=== PATIENT | male | born 2000 | race Caucasian/White ===

== ENCOUNTER → 2021-01-12 15:22 | Outpatient (CLI) | payer OTHER, SELFPAY ==
[2021-01-12 15:35] LABS: Add Manual Diff / Slide Review NO; Basophils Absolute Auto 100 /uL (0-100); Eosinophils Absolute Auto 0 /uL (0-450); Eosinophils Percent Auto 0.5 % (2-4); Hematocrit 45.9 % (41-53); Hemoglobin 15.2 g/dL (13.5-17.5); Lymphocytes Absolute Auto 2000 /uL (1100-4500); Lymphocytes Percent Auto 28.4 % (25-40); Mean Corpuscular Hemoglobin 29.4 PG (26-34); Mean Corpuscular Volume 89.1 fL (80-100); Monocytes Absolute Auto 700 /uL (0-900); Neutrophils Absolute Auto 4300 /uL (1500-7000); Neutrophils Percent Auto 60.1 % (50-75); Platelet Count 255 X10^3/uL (150-400); Red Blood Cell Count 5.15 X10^6/uL (4.5-5.9); Red Cell Distribution Width 13.5 % (11.6-14.8); White Blood Cell Count 7.1 X10^3/uL (4.5-11.0)
[2021-01-12 15:56] LABS: Alanine Aminotransferase 21 IU/L (<50); Albumin 4.8 g/dL (3.5-5.0); Albumin Globulin Ratio 1.7 (1.0-2.8); Alkaline Phosphatase 61 U/L (38-126); Aspartate Aminotransferase 26 IU/L (17-59); BUN Creatinine Ratio 13.1 (6-22); Bilirubin Total 1.2 mg/dL (0.2-1.3); Blood Urea Nitrogen 13 mg/dL (9-20); Calcium 9.4 mg/dL (8.4-10.2); Carbon Dioxide 31 mmol/L (22-32); Chloride 103 mmol/L (98-107); Cholesterol 182 mg/dL (140-199); Estimated Glomerular Filt Rate > 60.0 mL/min (>60); Globulin 2.9 g/dL (1.7-4.1); Glucose 90 mg/dL (70-100); HDL Cholesterol 53 mg/dL (40-60); HEMOLYSIS < 15 (0-50); LDL Cholesterol Calculated 97 mg/dL (<100); Potassium 3.9 mmol/L (3.4-5.1); Sodium 141 mmol/L (137-145); Total Protein 7.7 g/dL (6.3-8.2); Triglycerides 159 mg/dL (35-150)
== END ==
PROVIDERS: Family Provider Pediatrics; PCP Pediatrics; Referring Provider Nurse Practitioner; Visit Provider Nurse Practitioner
DX: R10.9 Unspecified abdominal pain (principal)
CPT/HCPCS: 36415; 80053; 80061; 85025

== ENCOUNTER → 2021-01-16 11:02 | Outpatient (CLI) | payer OTHER, SELFPAY ==
--- NOTE | 2021-01-16 11:04 | DI.US.S_ITS ---
PROCEDURE: US SCROTUM INDICATIONS: TESTICULAR MASS TECHNIQUE: Real-time scanning was performed of the scrotum and testicles, with image documentation. Color and pulse Doppler interrogation was performed of both testicles. COMPARISON: None. FINDINGS: Right: Testicle measures 4.4 x 2.9 x 1.7 cm and appears homogenous in echotexture. No discrete testicular mass identified. Epididymis is normal in overall size and morphology. No hydrocele or varicoceles. Overlying scrotal skin is normal in thickness. Left: Testicle measures 4.2 x 2.6 x 1.8 cm and appears homogeneous in echotexture. No discrete testicular mass identified. Epididymis is normal in overall size and morphology. No hydrocele or varicoceles. Overlying scrotal skin is normal in thickness. Doppler: Color and pulse Doppler demonstrate normal and symmetric arterial flow in both testicles. IMPRESSION: 1. No discrete scrotal or testicular mass identified. Dictated by: Ganesh Gauthier M.D. on 01/16/2021 at 12:02 Approved by: Ganesh Gauthier M.D. on 01/16/2021 at 12:44
== END ==
PROVIDERS: Family Provider Pediatrics; PCP Pediatrics; Referring Provider Nurse Practitioner; Visit Provider Nurse Practitioner
DX: N50.89 Other specified disorders of the male genital organs (principal)
CPT/HCPCS: 76870

== ENCOUNTER 2022-03-12 08:42 | Emergency (ER) | payer OTHER, SELFPAY ==
[2022-03-12] VITALS (7 sets, daily range): BP systolic 118–129; BP diastolic 71–83; PULSE 89–113; RESP 16–18; TEMP 36.4; O2SAT 97–99; BMI 21.2
--- NOTE | 2022-03-12 09:16 | DI.US.S_ITS ---
Caution: Report not yet finalized and possibly incomplete! PROCEDURE: US SCROTUM INDICATIONS: RIGHT TESTICULAR PAIN AND SWELLING TECHNIQUE: Real-time scanning was performed of the scrotum and testicles, with image documentation. Color and pulse Doppler interrogation was performed of both testicles. COMPARISON: [facility], US, US SCROTUM, 01/16/2021, 11:17. FINDINGS: Right: Testicle is normal in size at 3.7 x 2.3 x 2.5 cm, and homogenous in echotexture. Epididymis is enlarged, measuring 17 mm. There is increased vascularity within the epididymis. Septated hydrocele with debris is present. Overlying scrotal wall is thickened. Left: Testicle is normal in size at 4.3 x 2.4 x 1.8 cm, and homogeneous in echotexture. Epididymis is normal in overall size and morphology. No hydrocele or varicoceles. Overlying scrotal skin is normal in thickness. Doppler: Color and pulse Doppler demonstrate normal and symmetric arterial flow in both testicles. IMPRESSION: 1. Findings suggestive of right-sided epididymitis. 2. Septated debris-filled right hydrocele which may indicate purulent or hemorrhagic contents. Dictated by: Kalyan Chawla M.D. on 03/12/2022 at 10:36 Transcribed by: NYDIA on 03/12/2022 at 10:39
--- NOTE | 2022-03-12 09:16 | ED.GENADULT ---
HPI - General Adult General Chief complaint: Urogenital-Male Stated complaint: Swollen in [place] area, abd pain,sent by [facility] Time Seen by Provider: 03/12/22 09:03 Source: patient and family Mode of arrival: Ambulatory History of Present Illness HPI narrative: Patient is a 21-year-old male who is here for evaluation of right testicular pain and swelling and pain in his right abdomen and lower back. He states that his symptoms initially started a couple weeks ago. [place] happened. He went to a urgent care. Was presumptively diagnosed with epididymitis. He states that they did check his urine he did not have a urinary tract infection but there was no ultrasound obtained. He was sent home on Bactrim. He has completed the course of the Bactrim. His symptoms greatly improved however a couple days ago they seem to have returned and have worsened since then. He is not having any urinary symptoms. Has had some subjective fevers. No trauma. He is not sexually active. No history of sexually transmitted diseases. No concern about that currently. He is circumcised. He did have a right inguinal hernia repair as a child. He is also had his appendix removed. He has been taking Tylenol at home with only minimal improvement. Related Data Previous Rx's Medication Instructions Recorded doxycycline hyclate 100 mg capsule 100 mg PO BID 10 days #20 caps 03/12/22 Allergies Allergy/AdvReac Type Severity Reaction Status Date / Time No Known Drug Allergies Allergy Verified 03/12/22 08:31 Review of Systems Constitutional Constitutional: Reports system reviewed and no additional complaints, except as documented Gastrointestinal Gastrointestinal: Reports system reviewed and no additional complaints, except as documented Genitourinary Genitourinary: Reports system reviewed and no additional complaints, except as documented Integumentary/Breasts Skin/Breast: Reports system reviewed and no additional complaints, except as documented Hematologic/Lymphatic On Anticoagulants: No Patient History Medical History Acute appendicitis Pericarditis Pleurisy Social History Smoking Status: Never smoker Smoking Status: Never smoker Substance Use Type: does not use Exam Initial Vital Signs Initial Vital Signs: Vital Signs Blood Pressure 119/77 03/12/22 08:54 HENMT Head: normal to inspection and normocephalic Resp Effort & Inspection: normal respiratory effort Cardio Rate: regular rate GI Inspection: normal to inspection and non-distended Palpation: No firm, No guarding and tender (Right lower quadrant) Other: Circumcised, penis is unremarkable. No inguinal hernias felt bilaterally. Left testicle is unremarkable. Right testicle and epididymis is swollen. Somewhat discolored. Is tender to the touch. Skin General: no rashes or lesions noted Neuro General: patient alert, patient awake and moves all extremities Extrem General: normal to inspection and capillary refill normal Course Orders Ordered: ED Orders 03/12/22 09:16 US scrotum Stat 03/12/22 10:02 Basic Metabolic Panel Stat Complete Blood Count AUTO DIFF Stat Discontinued Medications Ceftriaxone Sodium (Ceftriaxone 1,000 Mg Vial) 500 mg IM NOW ONE Stop: 03/12/22 11:07 Lidocaine HCl (Lidocaine 1% (Pf) 5 Ml) 2.1 ml INJ NOW ONE Stop: 03/12/22 11:07 Vital Signs Vital signs: Vital Signs - 8 hr 03/12/22 08:54 03/12/22 08:55 03/12/22 08:59 Temperature 97.6 F 97.6 F Pulse Rate 113 H 101 H Respiratory Rate 16 18 Blood Pressure 119/77 119/77 Pulse Oximetry 99 99 Oxygen Delivery Method Room Air 03/12/22 09:00 03/12/22 09:00 03/12/22 09:30 Temperature Pulse Rate 100 H 89 Respiratory Rate Blood Pressure 121/83 Pulse Oximetry 98 97 Oxygen Delivery Method 03/12/22 09:33 03/12/22 09:33 Temperature Pulse Rate 96 H Respiratory Rate Blood Pressure 129/71 Pulse Oximetry 99 Oxygen Delivery Method Room Air Medical Decision Making Lab Data Lab results reviewed: Yes I reviewed the patient's lab results. Result diagrams: 03/12/22 10:02 03/12/22 10:02 Labs: Lab Results 03/12/22 03/12/22 Range/Units 10:02 10:02 WBC 7.1 (4.5-11.0) X10^3/uL RBC 4.82 (4.5-5.9) X10^6/uL Hgb 14.4 (13.5-17.5) g/dL Hct 41.8 (41-53) % MCV 86.8 (80-100) fL MCH 30.0 (26-34) PG MCHC 34.5 (30-36) % RDW 13.7 (11.6-14.8) % Plt Count 299 (150-400) X10^3/uL Neut % (Auto) 59.9 (50-75) % Lymph % (Auto) 25.0 (25-40) % [place] % (Auto) 12.3 (3-14) % Eos % (Auto) 1.3 L (2-4) % Baso % (Auto) 1.5 (0-2) % Neut # (Auto) 4300 (2295-0269) /uL Lymph # (Auto) 1800 (8512-2774) /uL [place] # (Auto) 900 (0-900) /uL Eos # (Auto) 100 (0-450) /uL Baso # (Auto) 100 (0-100) /uL Sodium 138 (137-145) mmol/L Potassium 4.0 (3.4-5.1) mmol/L Chloride 99 (98-107) mmol/L Carbon Dioxide 27 (22-32) mmol/L BUN 11 (9-20) mg/dL Creatinine 1.14 (0.66-1.25) mg/dL Estimated GFR > 60 (>60) mL/min BUN/Creatinine Ratio 9.6 (6-22) Glucose 86 (70-100) mg/dL Calcium 9.5 (8.4-10.2) mg/dL Urine Dip Bedside Urine Glucose Negative Bedside Urine Bilirubin - Negative Bedside Urine Ketone - Negative Urine Specific [place] 1.010 Bedside Urine Occult Blood - Negative Bedside Urine pH 6.5 Bedside Urine Protein - Negative Bedside Urine Urobilinogen - Negative Bedside Urine Nitrite - Negative Bedside Urine Leukocytes - Negative Esterase Point of care testing: Urine Dip Bedside Urine Glucose Negative Bedside Urine Bilirubin - Negative Bedside Urine Ketone - Negative Urine Specific [place] 1.010 Bedside Urine Occult Blood - Negative Bedside Urine pH 6.5 Bedside Urine Protein - Negative Bedside Urine Urobilinogen - Negative Bedside Urine Nitrite - Negative Bedside Urine Leukocytes - Negative Esterase Imaging Data US scrotum: Radiologist's Impression: [address] [address] Ultrasound Report Draft Patient: Servando Horan MR#: [id number] : 2000 Acct:[id number] Age/Sex: 21 / M Date of Service: 03/12/22 Loc: ED Accession Number: [id number] ?? Procedure: US scrotum Ordering Provider: Orestes Quesada D.O. Caution: Report not yet finalized and possibly incomplete! ? ? PROCEDURE:? US SCROTUM ? INDICATIONS:? RIGHT TESTICULAR PAIN AND SWELLING ? TECHNIQUE:? Real-time scanning was performed of the scrotum and testicles, with image documentation.? Color and pulse Doppler interrogation was performed of both testicles.? ? COMPARISON:[facility], , US SCROTUM, 01/16/2021, 11:17. ? FINDINGS:? ? Right:? Testicle is normal in size at 3.7 x 2.3 x 2.5 cm, and homogenous in echotexture.? Epididymis is enlarged, measuring 17 mm.? There is increased vascularity within the epididymis.? Septated hydrocele with debris is present.? Overlying scrotal wall is thickened. ? Left:? Testicle is normal in size at 4.3 x 2.4 x 1.8 cm, and homogeneous in echotexture.? Epididymis is normal in overall size and morphology.? No hydrocele or varicoceles.? Overlying scrotal skin is normal in thickness.? ? Doppler:? Color and pulse Doppler demonstrate normal and symmetric arterial flow in both testicles.? ? IMPRESSION:? 1. Findings suggestive of right-sided epididymitis. 2. Septated debris-filled right hydrocele which may indicate purulent or hemorrhagic contents.? ? ? Dictated by: Kalyan Chawla M.D. on 03/12/2022 at 10:36 ? Transcribed by: NYDIA on 03/12/2022 at 10:39 MDM Narrative Medical decision making narrative: Labs are unremarkable. Urinalysis is unremarkable. Ultrasound consistent with epididymitis. I did discuss the case with Dr. Lopez on-call for Urology about the findings of the fluid-filled right hydrocele. He agreed with antibiotics and follow-up. Patient denies sexually transmitted infections however will treat with Rocephin and doxycycline as he was previously treated with Bactrim. He was given return precautions. He expressed understanding and agreement. Discharge Plan Departure Patient Disposition: Home Clinical Impression: Epididymitis Instructions: DI for Epididymitis Activity Restrictions/Additional Instructions: Please take the antibiotics as directed. They were electronically transmitted to [facility]. I do recommend that you may contact with the primary doctor. Also recommend that you contact the Urology Department at the number listed below for follow-up is you should have a repeat ultrasound in 4-6 weeks. Return to the emergency department for any new or worsening symptoms. Prescriptions: New doxycycline hyclate 100 mg capsule 100 mg PO BID 10 Days Qty: 20 0RF Referrals: Bashir Lopez MD [Physician] - Brian Osman MD [Primary Care Provider] -
[2022-03-12 10:17] LABS: Add Manual Diff / Slide Review NO; Basophils Absolute Auto 100 /uL (0-100); Basophils Percent Auto 1.5 % (0-2); Eosinophils Absolute Auto 100 /uL (0-450); Eosinophils Percent Auto 1.3 % (2-4); Hematocrit 41.8 % (41-53); Hemoglobin 14.4 g/dL (13.5-17.5); Lymphocytes Absolute Auto 1800 /uL (1100-4500); Mean Corpuscular HGB Conc 34.5 % (30-36); Mean Corpuscular Volume 86.8 fL (80-100); Monocytes Absolute Auto 900 /uL (0-900); Monocytes Percent Auto 12.3 % (3-14); Neutrophils Absolute Auto 4300 /uL (1500-7000); Neutrophils Percent Auto 59.9 % (50-75); Platelet Count 299 X10^3/uL (150-400); Red Blood Cell Count 4.82 X10^6/uL (4.5-5.9); Red Cell Distribution Width 13.7 % (11.6-14.8); White Blood Cell Count 7.1 X10^3/uL (4.5-11.0)
[2022-03-12 10:22] LABS: BUN Creatinine Ratio 9.6 (6-22); Blood Urea Nitrogen 11 mg/dL (9-20); Calcium 9.5 mg/dL (8.4-10.2); Carbon Dioxide 27 mmol/L (22-32); Chloride 99 mmol/L (98-107); Estimated Glomerular Filt Rate > 60 mL/min (>60); Glucose 86 mg/dL (70-100); HEMOLYSIS < 15 (0-50); Sodium 138 mmol/L (137-145)
[2022-03-12] MEDS: LIDOCAINE 1% (PF) 5 ML 2.1 ML INJ (11:31)
[2022-03-12] MEDS: cefTRIAXone 1,000 MG VIAL 500 MG IM (11:31)
== END 2022-03-12 11:45 | disposition home or self-care (01) ==
PROVIDERS: Emergency Provider Emergency Medicine; Family Provider Pediatrics; PCP Pediatrics
DX: N45.1 Epididymitis (principal)
CPT/HCPCS: 76870; 80048; 81003; 85025; 96372; 99284; J0696

== ENCOUNTER 2022-04-09 12:20 | Emergency (ER) | payer OTHER, SELFPAY ==
[2022-04-09 12:26] VITALS: BP 133/90; PULSE 91; RESP 18; TEMP 36.9; O2SAT 100; BMI 21.2
--- NOTE | 2022-04-09 12:34 | DI.US.S_ITS ---
PROCEDURE: US SCROTUM INDICATIONS: RIGHT SCROTAL PAIN TECHNIQUE: Real-time scanning was performed of the scrotum and testicles, with image documentation. Color and pulse Doppler interrogation was performed of both testicles. COMPARISON: [facility], , US SCROTUM, 03/12/2022, 10:09. FINDINGS: Right: Testicle is normal in size at 3.7 x 2.2 x 3.1 cm, and homogenous in echotexture. Epididymis is normal in overall size and morphology. No hydrocele or varicoceles. Overlying scrotal skin is normal in thickness. Left: Testicle is normal in size at 4.0 x 1.9 x 2.6 cm, and homogeneous in echotexture. Epididymis is normal in overall size and morphology. No hydrocele or varicoceles. Overlying scrotal skin is normal in thickness. Doppler: Color and pulse Doppler demonstrate normal and symmetric arterial flow in both testicles. IMPRESSION: Unremarkable scrotal ultrasound. No evidence of testicular torsion or testicular mass or epididymitis or orchitis. Dictated by: Mac Pablo M.D. on 04/09/2022 at 14:13 Approved by: Mac Pablo M.D. on 04/09/2022 at 14:16
--- NOTE | 2022-04-09 16:28 | ED_ITS ---
HPI - General Adult General Chief complaint: Urogenital-Male Stated complaint: In 6 weeks ago, Testicular pain Time Seen by Provider: 04/09/22 12:32 Source: patient Mode of arrival: Ambulatory History of Present Illness HPI narrative: Patient is a 21-year-old male who I evaluated emergency department several weeks ago. Diagnosed with epididymitis. Was placed on antibiotics. He did have a abnormal ultrasound and was instructed to follow-up with urology and have a repeat ultrasound. He states that he does have a referral in to see Urology. He was going to make an appointment to see them today however he started to have a reoccurrence of the pain in his right testicle in his lower abdomen. No urinary symptoms. No fevers. Symptoms are on the right side of his scrotum. He states the antibiotics did help his symptoms but now they have returned but not as bad as what they were before Related Data Previous Rx's Medication Instructions Recorded tramadol 50 mg tablet 50 mg PO Q8H PRN pain #10 tabs 04/09/22 Allergies Allergy/AdvReac Type Severity Reaction Status Date / Time No Known Drug Allergies Allergy Verified 03/19/22 14:55 Review of Systems Constitutional Constitutional: Reports system reviewed and no additional complaints, except as documented Gastrointestinal Gastrointestinal: Reports system reviewed and no additional complaints, except as documented Genitourinary Genitourinary: Reports system reviewed and no additional complaints, except as documented Integumentary/Breasts Skin/Breast: Reports system reviewed and no additional complaints, except as documented Hematologic/Lymphatic On Anticoagulants: No Patient History Medical History Acute appendicitis Costochondritis Left knee sprain Pericarditis Pleurisy Social History Smoking Status: Never smoker Smoking Status: Never smoker Substance Use Type: does not use Exam Initial Vital Signs Initial Vital Signs: Vital Signs Temperature 98.4 F 04/09/22 12:26 Pulse Rate 91 H 04/09/22 12:26 Respiratory Rate 18 04/09/22 12:26 Blood Pressure 133/90 04/09/22 12:26 Pulse Oximetry 100 04/09/22 12:26 Oxygen Delivery Method 04/09/22 12:26 Const General: cooperative and comfortable HENMT Head: normal to inspection and normocephalic GI Inspection: normal to inspection and non-distended Palpation: soft, No firm, No mass and No tender External: normal external exam, circumcised, no hernia, no inguinal lymphadenopathy, no lesions and no scrotal swelling Penis: normal penis Scrotum: scrotum normal, no ecchymosis and not erythematous Testes: normal, testicular lie normal, epididymal tenderness on the right and no testicular swelling Skin General: no rashes or lesions noted Neuro General: patient alert, patient awake and moves all extremities Course Orders Ordered: ED Orders 04/09/22 12:34 US scrotum Stat Vital Signs Vital signs: Vital Signs - 8 hr 04/09/22 12:26 Temperature 98.4 F Pulse Rate 91 H Respiratory Rate 18 Blood Pressure 133/90 Pulse Oximetry 100 Oxygen Delivery Method Room Air Medical Decision Making Medical Records Medical records reviewed: Yes I reviewed the patient's medical records. Lab Data Lab results reviewed: Yes I reviewed the patient's lab results. Labs: Urine Dip Bedside Urine Glucose Negative Bedside Urine Bilirubin - Negative Bedside Urine Ketone - Negative Urine Specific [place] 1.020 Bedside Urine Occult Blood - Negative Bedside Urine pH 6.0 Bedside Urine Protein - Negative Bedside Urine Urobilinogen - Negative Bedside Urine Nitrite - Negative Bedside Urine Leukocytes - Negative Esterase Point of care testing: Urine Dip Bedside Urine Glucose Negative Bedside Urine Bilirubin - Negative Bedside Urine Ketone - Negative Urine Specific [place] 1.020 Bedside Urine Occult Blood - Negative Bedside Urine pH 6.0 Bedside Urine Protein - Negative Bedside Urine Urobilinogen - Negative Bedside Urine Nitrite - Negative Bedside Urine Leukocytes - Negative Esterase Imaging Data US scrotal: Radiologist's Impression: [address] [address] Ultrasound Report Signed Patient: Servando Horan MR#: [id number] : 2000 Acct:[id number] Age/Sex: 21 / M Date of Service: 04/09/22 Loc: ED Accession Number: [id number] ?? Procedure: US scrotum Ordering Provider: Orestes Quesada D.O. PROCEDURE:? US SCROTUM ? INDICATIONS:? RIGHT SCROTAL PAIN ? TECHNIQUE:? Real-time scanning was performed of the scrotum and testicles, with image documentation.? Color and pulse Doppler interrogation was performed of both testicles.? ? COMPARISON:? [facility], US SCROTUM, 03/12/2022, 10:09. ? FINDINGS:? ? Right:? Testicle is normal in size at 3.7 x 2.2 x 3.1 cm, and homogenous in echotexture.? Epididymis is normal in overall size and morphology.? No hydrocele or varicoceles.? Overlying scrotal skin is normal in thickness.? ? Left:? Testicle is normal in size at 4.0 x 1.9 x 2.6 cm, and homogeneous in echotexture.? Epididymis is normal in overall size and morphology.? No hydrocele or varicoceles.? Overlying scrotal skin is normal in thickness.? ? Doppler:? Color and pulse Doppler demonstrate normal and symmetric arterial flow in both testicles.? ? IMPRESSION:? Unremarkable scrotal ultrasound.? No evidence of testicular torsion or testicular mass or epididymitis or orchitis. ? ? Dictated by: Mac Pablo M.D. on 04/09/2022 at 14:13 ? ? Approved by: Mac Pablo M.D. on 04/09/2022 at 14:16? MDM Narrative Medical decision making narrative: Repeat ultrasound today is normal compared to a couple weeks ago. His exam today is benign. No hernias felt. He has had his appendix removed and his symptoms are more in the inguinal area and right testicle rather than in the abdomen. We will hold on further radiologic studies for now. No indication for antibiotics. We did discuss conservative measures for epididymitis. Will have him follow-up with urology as previously instructed. He was given return precautions. He expressed understanding and agreement. Discharge Plan Departure Patient Disposition: Home Clinical Impression: Epididymitis Activity Restrictions/Additional Instructions: I do recommend that you follow-through following up with Urology. Also recommend you continue with the conservative measures to include heat and ice and Tylenol and ibuprofen and supportive clothing. Return to the emergency department for any new or worsening symptoms Prescriptions: New tramadol 50 mg tablet 50 mg PO Q8H PRN (Reason: pain) Qty: 10 0RF Referrals: Theresa Anaya DO [Primary Care Provider] - Visit Report Forms: Patient Portal/API
[2022-04-09 18:19] VITALS: BP 139/69; PULSE 68; RESP 14; TEMP 36.4; O2SAT 97
== END 2022-04-09 18:22 | disposition home or self-care (01) ==
PROVIDERS: Emergency Provider Emergency Medicine; Family Provider Pediatrics; PCP Family Medicine
DX: N45.1 Epididymitis (principal)
CPT/HCPCS: 76870; 81003; 99283

== ENCOUNTER → 2022-05-03 09:07 | Outpatient (CLI) | payer OTHER, SELFPAY ==
--- NOTE | 2022-05-03 09:07 | DI.CT.S_ITS ---
PROCEDURE: CT KIDNEY URETER BLADDER (KUB) INDICATIONS: Hydrocele,Epdidymitis TECHNIQUE: Axial sections were acquired from the lung bases to the pubic symphysis. Coronal and sagittal reformats were performed. For radiation dose reduction, the following was used: automated exposure control, adjustment of mA and/or kV according to patient size. COMPARISON: None. FINDINGS: Image quality: Excellent. Lung bases: Unremarkable. Heart: No significant findings. URINARY: Right Kidney: No stones or hydronephrosis. Right Ureter: No hydroureter. Left Kidney: No stones or hydronephrosis. Left Ureter: No hydroureter. Bladder: Normal wall thickness. No stones. ABDOMEN: Liver: Unremarkable. Gallbladder: Unremarkable. Biliary ducts: Unremarkable. Pancreas: Unremarkable. Spleen: Unremarkable. Adrenal Glands: Unremarkable. Stomach and Bowel: Stomach, small bowel loops, and colon are unremarkable. Postsurgical changes of prior appendectomy. Peritoneum: No abnormal intraperitoneal fluid. No free air. Ventral Wall: No hernia. Abdominal Nodes: No enlarged retroperitoneal or mesenteric lymph nodes. Vessels: Aorta and inferior vena cava are normal in size. PELVIS: Pelvic Organs: Unremarkable. Pelvic Nodes: Unremarkable. Miscellaneous: No inguinal hernias are seen. Bones: Unremarkable. IMPRESSION: CT KUB without evidence for obstructive uropathy or urolithiasis. No acute abnormalities identified in the abdomen or pelvis. Dictated by: Junior Morales M.D. on 05/03/2022 at 17:00 Approved by: Junior Morales M.D. on 05/03/2022 at 17:17
== END ==
PROVIDERS: Family Provider Pediatrics; PCP Family Medicine; Referring Provider Specialist; Visit Provider Specialist
DX: N50.811 Right testicular pain (principal)
CPT/HCPCS: 74176

== ENCOUNTER → 2022-06-13 16:41 | Outpatient (CLI) | payer OTHER, SELFPAY ==
--- NOTE | 2022-06-13 16:43 | DI.RAD.S_ITS ---
PROCEDURE: XR LUMBAR SPINE MIN 4V INDICATIONS: BACK PAIN TECHNIQUE: 5 views of the lumbar spine were acquired, including bilateral oblique views. COMPARISON: None. FINDINGS: Bones: 5 nonrib-bearing vertebrae are present. There is normal bony alignment. No vertebral body compression fractures. No suspicious bony lesions. Soft tissues: Overlying bowel gas pattern is normal. No suspicious soft tissue calcifications. Surgical clips in the right lower quadrant are seen, likely related to appendectomy. Oblique images: No pars defects. IMPRESSION: Normal lumbar spine. Dictated by: Lorraine Baez M.D. on 06/13/2022 at 17:18 Approved by: Lorraine Baez M.D. on 06/13/2022 at 17:18
== END ==
PROVIDERS: Family Provider Pediatrics; PCP Family Medicine; Referring Provider Physical Medicine & Rehabilitation; Visit Provider Physical Medicine & Rehabilitation
DX: M54.9 Dorsalgia, unspecified (principal)
CPT/HCPCS: 72110

== ENCOUNTER → 2022-07-22 09:09 | Outpatient (CLI) | payer OTHER, SELFPAY ==
--- NOTE | 2022-07-22 09:10 | DI.MRI.S_ITS ---
PROCEDURE: MR LUMBAR SPINE WO CON INDICATIONS: Axial low back pain TECHNIQUE: Noncontrast sagittal T1 spin echo and T2 fast echo, sagittal STIR, and T2 fast spin echo through the lumbar spine. In cases with scoliosis, additional coronal T2 fast spin echo may be performed. COMPARISON: None. FINDINGS: Image quality: Excellent. Alignment and Curvature: There is normal bony alignment. Bone Marrow: Marrow is of normal overall signal. No acute vertebral body compression fractures. Spinal Cord: Conus medullaris terminates at the L1 level. Visualized cord demonstrates normal signal and size. Paraspinous Soft Tissues: No paravertebral masses. T12-L1: Normal appearance. L1-L2: Normal appearance. L2-L3: Normal appearance. L3-L4: No canal stenosis. Mild bilateral neural foraminal stenosis. L4-L5: Mild disc bulge. No canal stenosis. Mild bilateral foraminal narrowing. L5-S1: Mild disc bulge. No canal stenosis or foraminal stenosis. There is a small focal posterior high-intensity zone. IMPRESSION: 1. Overall preservation of disc height and signal. No canal stenosis. No significant foraminal stenosis. 2. Small L5-S1 posterior annular fibrosis tear. Dictated by: Chanelle Cervantes M.D. on 07/23/2022 at 8:20 Approved by: Chanelle Cervantes M.D. on 07/23/2022 at 8:25
== END ==
PROVIDERS: Family Provider Pediatrics; PCP Family Medicine; Referring Provider Physical Medicine & Rehabilitation; Visit Provider Physical Medicine & Rehabilitation
DX: M51.37 Other intervertebral disc degeneration, lumbosacral region (principal); M47.816 Spondylosis without myelopathy or radiculopathy, lumbar region; Z82.69 Family history of other diseases of the musculoskeletal system and connective tissue
CPT/HCPCS: 72148

== ENCOUNTER → 2022-07-30 09:10 | Outpatient (CLI) | payer OTHER, SELFPAY ==
[2022-07-30 09:56] LABS: Hematocrit 47.2 % (41-53); Hemoglobin 16.1 g/dL (13.5-17.5); Mean Corpuscular HGB Conc 34.1 % (30-36); Mean Corpuscular Hemoglobin 29.6 PG (26-34); Platelet Count 281 X10^3/uL (150-400); Red Blood Cell Count 5.42 X10^6/uL (4.5-5.9); Red Cell Distribution Width 13.6 % (11.6-14.8); White Blood Cell Count 5.8 X10^3/uL (4.5-11.0)
[2022-07-30 10:34] LABS: Alanine Aminotransferase 20 IU/L (<50); Albumin 4.8 g/dL (3.5-5.0); Albumin Globulin Ratio 1.4 (1.0-2.8); Alkaline Phosphatase 62 U/L (38-126); Aspartate Aminotransferase 25 IU/L (17-59); BUN Creatinine Ratio 12.3 (6-22); Bilirubin Total 1.5 mg/dL (0.2-1.3); Blood Urea Nitrogen 13 mg/dL (9-20); Carbon Dioxide 29 mmol/L (22-32); Chloride 102 mmol/L (98-107); Estimated Glomerular Filt Rate > 60 mL/min (>60); Globulin 3.5 g/dL (1.7-4.1); Glucose 93 mg/dL (70-100); HEMOLYSIS < 15 (0-50); Potassium 4.7 mmol/L (3.4-5.1); Sodium 140 mmol/L (137-145); Total Protein 8.3 g/dL (6.3-8.2)
[2022-07-30 11:12] LABS: Monotest Negative (Negative)
[2022-07-30 11:42] LABS: Thyroid Stimulating Hormone 2.66 uIU/mL (0.47-4.68)
[2022-07-31 11:23] LABS: EBV EBNA Antibody IgG > 600.0 U/mL (0.0-17.9); EBV Virus IgM Ab < 36.0 U/mL (0.0-35.9)
== END ==
PROVIDERS: Family Provider Pediatrics; PCP Family Medicine; Referring Provider Family Medicine; Visit Provider Family Medicine
DX: M54.2 Cervicalgia (principal); R53.83 Other fatigue; R59.9 Enlarged lymph nodes, unspecified
CPT/HCPCS: 36415; 80053; 84443; 85027; 86318; 86644; 86645; 86663; 86664; 86665

== ENCOUNTER → 2024-06-09 07:55 | Outpatient (CLI) | payer OTHER, SELFPAY ==
--- NOTE | 2024-06-09 07:57 | DI.RAD.S_ITS ---
PROCEDURE: XR SHOULDER RT MIN 2V INDICATIONS: Ground level fall L I TECHNIQUE: 3 views of the shoulder were acquired. COMPARISON: None. FINDINGS: Bones: No fractures or dislocations. No suspicious bony lesions. Visualized ribs appear intact. Soft tissues: No suspicious soft tissue calcifications. IMPRESSION: No acute osseous abnormality. If pain persists with conservative management, consider repeat x-ray in 10-14 days or cross-sectional imaging. Dictated by: Vasquez Quezada M.D. on 06/09/2024 at 9:58 Approved by: Vasquez Quezada M.D. on 06/09/2024 at 9:59
--- NOTE | 2024-06-09 07:57 | DI.RAD.S_ITS ---
PROCEDURE: XR WRIST RT MIN 3V INDICATIONS: Ground level fall L I TECHNIQUE: 4 views of the wrist were acquired. COMPARISON: [facility], WRIST MINIMUM 3 VIEWS LEFT, 07/20/2014, 15:26. [facility], WRIST MINIMUM 3 VIEWS LEFT, 10/02/2008, 11:42. FINDINGS: Bones: No fractures or dislocations. No suspicious bony lesions. Soft tissues: No suspicious soft tissue calcifications. IMPRESSION: No acute osseous abnormality. If pain persists with conservative management, consider repeat x-ray in 10-14 days or cross-sectional imaging. Dictated by: Vasquez Quezada M.D. on 06/09/2024 at 9:57 Approved by: Vasquez Quezada M.D. on 06/09/2024 at 9:58
== END ==
LOC: RAD 07:56
PROVIDERS: Family Provider Pediatrics; PCP Family Medicine; Referring Provider Nurse Practitioner Family; Visit Provider Nurse Practitioner Family
DX: S49.91XA Unspecified injury of right shoulder and upper arm, initial encounter (principal); W00.0XXA Fall on same level due to ice and snow, initial encounter
CPT/HCPCS: 73030; 73110

== ENCOUNTER → 2024-07-22 08:44 | Outpatient (CLI) | payer OTHER, SELFPAY | PROVIDERS: Family Provider Pediatrics; PCP Family Medicine; Visit Provider Nurse Practitioner Family | DX: J02.9 Acute pharyngitis, unspecified (principal) | CPT/HCPCS: 87070 ==

== ENCOUNTER → 2024-10-07 11:41 | Outpatient (CLI) | payer OTHER, SELFPAY ==
[2024-10-07 13:31] LABS: Urine N gonorrhoeae NOT DETECTED
[2024-10-07 14:31] LABS: Urine Chlamydia NOT DETECTED
== END ==
PROVIDERS: Family Provider Pediatrics; PCP Family Medicine; Visit Provider Physician Assistant
DX: R30.0 Dysuria (principal)
CPT/HCPCS: 87086; 87491; 87591

== ENCOUNTER → 2024-11-25 07:49 | Outpatient (CLI) | payer OTHER, SELFPAY ==
[2024-11-25 09:57] LABS: Urine N gonorrhoeae NOT DETECTED
[2024-11-25 09:58] LABS: Urine Chlamydia NOT DETECTED
== END ==
PROVIDERS: Family Provider Pediatrics; PCP Family Medicine; Visit Provider Physician Assistant
DX: R36.9 Urethral discharge, unspecified (principal); R19.7 Diarrhea, unspecified; Z11.3 Encounter for screening for infections with a predominantly sexual mode of transmission; J02.9 Acute pharyngitis, unspecified
CPT/HCPCS: 87070; 87086; 87491; 87591

== ENCOUNTER → 2024-11-25 08:30 | Outpatient (CLI) | payer OTHER, SELFPAY ==
[2024-11-25 09:33] LABS: Add Manual Diff / Slide Review NO; Hematocrit 46.3 % (41-53); Hemoglobin 15.8 g/dL (13.5-17.5); Lymphocytes Absolute Auto 1500 /uL (1100-4500); Mean Corpuscular HGB Conc 34.2 % (30-36); Mean Corpuscular Hemoglobin 30.2 PG (26-34); Mean Corpuscular Volume 88.3 fL (80-100); Platelet Count 283 X10^3/uL (150-400)
[2024-11-25 09:50] LABS: Alanine Aminotransferase 31 IU/L (<50); Albumin 4.9 g/dL (3.5-5.0); Albumin Globulin Ratio 1.6 (1.0-2.8); Alkaline Phosphatase 81 U/L (38-126); Blood Urea Nitrogen 14 mg/dL (9-20); Calcium 10.0 mg/dL (8.4-10.2); Carbon Dioxide 27 mmol/L (22-32); Chloride 102 mmol/L (98-107); Estimated Glomerular Filt Rate > 60 mL/min (>60); Globulin 3.0 g/dL (1.7-4.1); Glucose 84 mg/dL (70-99); HEMOLYSIS < 15 (0-50); Potassium 5.1 mmol/L (3.4-5.1); Sodium 139 mmol/L (137-145); Total Protein 7.9 g/dL (6.3-8.2)
[2024-11-25 10:32] LABS: HIV 1 & 2 Ab/Ag 4th Gen Combo NEGATIVE (NEGATIVE)
== END ==
PROVIDERS: Family Provider Pediatrics; PCP Family Medicine; Referring Provider Physician Assistant; Visit Provider Physician Assistant
DX: Z11.3 Encounter for screening for infections with a predominantly sexual mode of transmission (principal)
CPT/HCPCS: 36415; 80053; 85025; 86592; 87070; 87086; 87389; 87491; 87591